=== PATIENT | male | born 1970 | race Caucasian/White ===

== ENCOUNTER 2024-05-28 15:23 | Emergency (ER) | payer MEDICAID ==
[~2024-05-28] VITALS: Ht 165.1 cm; Wt 79.4 kg
[2024-05-28] MEDS ORDERED: TETRACAINE HCL 0.5% OPHT DROP 2 ML BOTTLE ONE (16:06)
[2024-05-28] MEDS ORDERED: FLUORESCEIN SODIUM 1 MG STRIP ONE (16:06)
[2024-05-28] MEDS: TETRACAINE HCL 0.5% OPHT DROP 2 ML BOTTLE OP ONE (16:23)
[2024-05-28] MEDS: FLUORESCEIN SODIUM 1 MG STRIP OP ONE (16:23)
[2024-05-28] MEDS ORDERED: GENT5DRO4 EACHEYE (16:27)
[2024-05-28 16:43] VITALS: BP 133/75; TEMP 97.8; O2SAT 98
== END 2024-05-28 16:45 | disposition home or self-care (01) ==
LOC: ER 15:24
DX: H10.9 Unspecified conjunctivitis (principal); Z79.2 Long term (current) use of antibiotics
CPT/HCPCS: A4606; A4663